=== PATIENT | male | born 1985 | race Hispanic/Latino ===

== ENCOUNTER 2018-05-18 17:41 | Emergency (ER) | payer SELFPAY ==
--- NOTE | 2018-05-18 18:20 | EDPHYS ---
Physician Documentation [facility] Name: José Miguel Varma Age: 32 yrs Sex: Male : 1985 Arrival Date: 05/18/2018 Time: 17:45 Bed 27 Private MD: ED Physician Loc Barroso HPI: 05/18 19:31 This 32 yrs old Male presents to ER via Ambulatory with complaints of Torn jr8 Bicep. 19:31 Onset: The symptoms/episode began/occurred acutely, today. Associated signs and jr8 symptoms: The patient has no apparent associated signs or symptoms. Severity of symptoms: At their worst the symptoms were moderate, in the emergency department the symptoms are unchanged. The patient has not experienced similar symptoms in the past. The patient has not recently seen a physician. Patient stated that he was doing lifts and felt pop at proximal anterior shoulder. Noticed ball at mid biceps. Pain since incident. Thinks he may have torn something . Historical: - Allergies: 17:47 No Known Allergies; hj - Home Meds: 17:47 None [Active]; hj - PMHx: 17:47 None; hj - PSHx: 17:47 R shoulder surgery; hj - Immunization history:: Adult Immunizations up to date. - Social history:: Smoking status: Patient/guardian denies using tobacco, Patient uses alcohol, only on a social basis. - Ebola Screening: : Patient negative for fever greater than or equal to 101.5 degrees Fahrenheit, and additional compatible Ebola Virus Disease symptoms Patient denies exposure to infectious person Patient denies travel to an Ebola-affected area in the 21 days before illness onset. ROS: 19:31 Eyes: Negative for injury, pain, redness, and discharge, ENT: Negative for injury, jr8 pain, and discharge, Neck: Negative for injury, pain, and swelling, Cardiovascular: Negative for chest pain, palpitations, and edema, Respiratory: Negative for shortness of breath, cough, wheezing, and pleuritic chest pain, Abdomen/GI: Negative for abdominal pain, nausea, vomiting, diarrhea, and constipation, Back: Negative for injury and pain, Skin: Negative for injury, rash, and discoloration, Neuro: Negative for headache, weakness, numbness, tingling, and seizure. 19:31 MS/extremity: Positive for pain, tenderness, of the right bicep. Exam: 19:31 Cardiovascular: Regular rate and rhythm with a normal S1 and S2. No gallops, murmurs, jr8 or rubs. Normal PMI, no JVD. No pulse deficits. Respiratory: Lungs have equal breath sounds bilaterally, clear to auscultation and percussion. No rales, rhonchi or wheezes noted. No increased work of breathing, no retractions or nasal flaring. Skin: Warm, dry with normal turgor. Normal color with no rashes, no lesions, and no evidence of cellulitis. Neuro: Awake and alert, GCS 15, oriented to person, place, time, and situation. Cranial nerves II-XII grossly intact. Motor strength 5/5 in all extremities. Sensory grossly intact. Cerebellar exam normal. Normal gait. 19:31 Musculoskeletal/extremity: Extremities: grossly normal except: noted in the right bicep: pain, tenderness, biceps on right has been displaced distally consistent with torn tendon , ROM: intact in all extremities, limited active range of motion due to pain, limited passive range of motion due to pain, Circulation is intact in all extremities. Sensation intact. Vital Signs: 17:48 BP 121 / 87; Pulse 87; Resp 18; Temp 98.8(TE); Pulse Ox 97% on R/A; Weight 97.52 kg; Height 5 ft. 10 in. (177.80 cm); Pain 10/10; 18:04 BP 131 / 82; Pulse 80; Resp 18; Pulse Ox 95% on R/A; Pain 10/10; mg2 17:48 Body Mass Index 30.85 (97.52 kg, 177.80 cm) Procedures: 19:31 Splinting: Splint applied to right arm using sling, applied by nurse. Examined by gema jackson post splint application: neurovascular intact, 2+ distal pulses palpable, brisk capillary refill noted, Patient tolerated well. MDM: 18:00 Patient medically screened. jr8 18:19 Data reviewed: vital signs, nurses notes, and as a result, I will discharge patient. jr8 Data interpreted: Pulse oximetry: on room air is 95 %. Interpretation: normal. Counseling: I had a detailed discussion with the patient and/or guardian regarding: the historical points, exam findings, and any diagnostic results supporting the discharge/admit diagnosis, the need for outpatient follow up, a orthopedic surgeon, to return to the emergency department if symptoms worsen or persist or if there are any questions or concerns that arise at home. 05/18 18:19 Order name: Laz; Complete Time: 18:30 jr8 Administered Medications: No medications were administered Disposition: 05/18/18 18:19 Discharged to Home. Impression: Injury of muscle, fascia and tendon of long head of biceps. - Condition is Stable. - Discharge Instructions: Bicipital Tendinitis. - Prescriptions for Mobic 7.5 mg Oral Tablet - take 1 tablet by ORAL route once daily take with food; 20 tablet. Ultracet 37.5- 325 mg Oral Tablet - take 1 tablet by ORAL route every 6 hours - for up to 5 days; do not exceed 8 tablets per day.; 30 tablet. - Medication Reconciliation Form, Thank You Letter, Antibiotic Education, Prescription Opioid Use form. - Follow up: Gilberto Tang MD; When: 2 - 3 days; Reason: Recheck today's complaints, Continuance of care, Re-evaluation by your physician. - Problem is new. - Symptoms have improved. Addendum: 05/22/2018 22:14 Co-signature as Attending Physician, Loc Barroso MD Available for consultation at p s1 all times. . Signatures: Nghia Motley PA PA jr8 Jamil Ojeda RN RN hj Loc Barroso MD MD ps1 Tono Faulkner RN RN mg2 Corrections: (The following items were deleted from the chart) 05/18 18:32 18:19 05/18/2018 18:19 Discharged to Home. Impression: Injury of muscle, fascia and mg2 tendon of long head of biceps. Condition is Stable. Forms are Medication Reconciliation Form, Thank You Letter, Antibiotic Education, Prescription Opioid Use. Follow up: Dr. Gilberto Tang; When: 2 - 3 days; Reason: Recheck today's complaints, Continuance of care, Re-evaluation by your physician. Problem is new. Symptoms have improved. jr8
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
== END 2018-05-18 18:32 | disposition home or self-care (01) ==
LOC: ER 17:41
DX: S46.101A Unspecified injury of muscle, fascia and tendon of long head of biceps, right arm, initial encounter (principal); X50.0XXA Overexertion from strenuous movement or load, initial encounter; Y93.B3 Activity, free weights; Y92.89 Other specified places as the place of occurrence of the external cause
CPT/HCPCS: 99283

== ENCOUNTER 2020-01-10 09:22 | Emergency (ER) | payer SELFPAY ==
[2020-01-10] MEDS ORDERED: HYDROCODONE/APAP 7.5/325 MG TAB ONE (09:49)
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
[2020-01-10] MEDS ORDERED: ONDANSETRON 4 MG (ODT) TAB ONE (11:21)
[2020-01-10] MEDS ORDERED: MORPHINE 4 MG/ML SYR ONE (11:21)
[2020-01-10 11:35] VITALS: BP 152/94; TEMP 97.8; O2SAT 98
== END 2020-01-10 11:28 | disposition home or self-care (01) ==
LOC: ER 09:22
DX: S61.442A Puncture wound with foreign body of left hand, initial encounter (principal); W34.010A Accidental discharge of airgun, initial encounter; Y93.89 Activity, other specified; Y92.009 Unspecified place in unspecified non-institutional (private) residence as the place of occurrence of the external cause
CPT/HCPCS: 96372; 99284

== ENCOUNTER 2020-08-21 10:24 | Inpatient (IN) | payer SELFPAY ==
--- NOTE | 2020-08-21 11:58 | RAD REPORT ---
EXAM DESCRIPTION: CT - Abdomen Pelvis W Contrast - 08/21/2020 11:36 am CLINICAL HISTORY: ABD PAIN COMPARISON: No comparisons TECHNIQUE: Biphasic, helical CT imaging of the abdomen and pelvis was performed following 100 ml non -ionic IV contrast. No oral contrast administered. All CT scans are performed using dose optimization technique as appropriate and may include automated exposure control or mA/KV adjustment according to patient size. FINDINGS: No suspicious findings in the lung bases. The liver, spleen, and pancreas show no suspicious findings. Gallbladder and biliary tree are also wi thout suspicious finding. Symmetric renal function is seen with no hydronephrosis or suspicious renal mass. No pyelonephritis o r acute parenchymal process. No bladder abnormalities. No adrenal abnormalities. No dilated bowel loops or bowel wall thickening. No free air, free fluid or inflammatory stranding. No mass or bulky lymphadenopathy. Patient has a small fat only periumbilical hernia and a small fat only right inguinal hernia. No active components. No suspicious bony findings. IMPRESSION: Contrast enhanced CT abdomen and pelvis showing no significant or suspicious finding. Nonacute findings detailed in the body of the report.
[2020-08-21] MEDS ORDERED: MORPHINE 4 MG/ML SYR ONE (12:00)
[2020-08-21] MEDS ORDERED: ONDANSETRON 4 MG/2 ML VIAL ONE ×2 (12:00→12:48)
[2020-08-21] MEDS ORDERED: FAMOTIDINE 20 MG/2 ML VIAL IV ONE (12:00)
--- NOTE | 2020-08-21 12:10 | RAD REPORT ---
EXAM DESCRIPTION: RAD - Chest Single View - 08/21/2020 12:01 pm CLINICAL HISTORY: Chest pain;Abdominal distention COMPARISON: None TECHNIQUE: AP portable chest image was obtained 08/21/2020 12:01 pm . FINDINGS: Lungs are clear. Heart and vasculature are normal. No measurable pleural effusion and no p neumothorax. No acute bony abnormality seen. No acute aortic findings suspected. IMPRESSION: No acute cardiopulmonary process.
[2020-08-21 12:12] LABS: Absolute Lymphocytes (CBC) 2.3 K/uL (0.7-4.9); Basophils % 1.1 % (0-1.3); Hematocrit 54.7 % (39.6-49.0); Lymphocytes % 21.9 % (15.3-44.8); MPV 8.8 fL (7.6-11.3)
[2020-08-21 12:19] LABS: Barbiturates NEGATIVE (NEGATIVE); Benzodiazepines NEGATIVE (NEGATIVE); Cocaine POSITIVE (NEGATIVE); METHAMPHETAM NEGATIVE (NEGATIVE); Methadone NEGATIVE (NEGATIVE); Opiates POSITIVE (NEGATIVE); Phencyclidine NEGATIVE (NEGATIVE); THC Cannibis NEGATIVE (NEGATIVE)
[2020-08-21 12:32] LABS: ALT/SGPT 44 U/L (12-78); AST/SGOT 41 U/L (15-37); Albumin 4.5 g/dL (3.4-5.0); Alkaline Phosphatase 62 U/L (45-117); BUN Blood Urea Nitrogen 10 mg/dL (7-18); Bicarbonate 26 mmol/L (21-32); Bilirubin Direct < 0.1 mg/dL (0-0.2); Bilirubin Total 0.5 mg/dL (0.2-1.0); Glucose Level 92 mg/dL (74-106); Lipase 502 U/L (73-393); Magnesium 2.1 mg/dL (1.8-2.4); Potassium 3.9 mmol/L (3.5-5.1); Protein, Total 8.3 g/dL (6.4-8.2); Sodium Level 138 mmol/L (136-145); Troponin (Emerg Dept Use Only) < 0.02 ng/mL (0.0-0.045)
[2020-08-21] MEDS ORDERED: HYDROMORPHONE HCL 1 MG/ML INJ ONE ×2 (12:48→16:12)
--- NOTE | 2020-08-21 13:26 | ER ---
Nurse's Notes [facility] Name: José Miguel Varma Age: 34 yrs Sex: Male : 1985 Arrival Date: 08/21/2020 Time: 10:25 Bed 20 Private MD: Diagnosis: Abdominal tenderness-intractable;Acute pancreatitis;Alcohol abuse;Cocaine abuse Presentation: 08/21 10:38 Chief complaint: Patient states: upper abd pain since last night, denies n/v/d, pain is iw non radiating, feels like something is squeezing inside 07/18, pt had 3-4 beers last night but only after the pain started , does not drink daily. Coronavirus screen: At this time, the client does not indicate any symptoms associated with coronavirus-19. Ebola Screen: Patient negative for fever greater than or equal to 101.5 degrees Fahrenheit, and additional compatible Ebola Virus Disease symptoms Patient denies exposure to infectious person. Patient denies travel to an Ebola-affected area in the 21 days before illness onset. No symptoms or risks identified at this time. Initial Sepsis Screen: Does the patient meet any 2 criteria? No. Patient's initial sepsis screen is negative. Does the patient have a suspected source of infection? No. Patient's initial sepsis screen is negative. Risk Assessment: Do you want to hurt yourself or someone else? Patient reports no desire to harm self or others. Onset of symptoms was August 21, 2020. 10:38 Method Of Arrival: Ambulatory iw 10:38 Acuity: SHAINA 2 iw Historical: - Allergies: 10:40 No Known Allergies; iw - Home Meds: 10:40 None [Active]; iw - PMHx: 10:40 None; iw - PSHx: 10:40 None; iw - Immunization history:: Adult Immunizations not up to date. - Social history:: Smoking status: Patient denies any tobacco usage or history of. - Family history:: not pertinent. Screenin:00 Abuse screen: Denies threats or abuse. Denies injuries from another. Nutritional jl7 screening: No deficits noted. Tuberculosis screening: No symptoms or risk factors identified. Fall Risk IV access (20 points). Total Higginbotham Fall Scale indicates No Risk (0-24 pts). Assessment: 11:00 General: Appears in no apparent distress. uncomfortable, Behavior is cooperative, jl7 crying. Pain: Complains of pain in epigastric area Pain currently is 10 out of 10 on a pain scale. Quality of pain is described as squeezing, gnawing, Pain began 1 day ago. Is continuous. Neuro: Level of Consciousness is awake, alert, obeys commands, Oriented to person, place, time, situation. Cardiovascular: Patient's skin is warm and dry. Respiratory: Airway is patent Respiratory effort is even, unlabored, Respiratory pattern is regular, symmetrical. GI: Abdomen is flat, non-distended, Stools are reported to be normal. Last BM was August 21, 2020. Abd is soft and non tender X 4 quads. Abdomen is tender to palpation in epigastric area. : No signs and/or symptoms were reported regarding the genitourinary system. Derm: Skin is pink, warm \T\ dry. Musculoskeletal: No signs and/or symptoms reported regarding the musculoskeletal system. 12:00 Reassessment: Patient appears in no apparent distress at this time. Patient and/or jl7 family updated on plan of care and expected duration. Pain level reassessed. Patient is alert, oriented x 3, equal unlabored respirations, skin warm/dry/pink. 12:50 Reassessment: Pain rated 6/10. jl7 14:06 Reassessment: Patient appears in no apparent distress at this time. Patient and/or jl7 family updated on plan of care and expected duration. Pain level reassessed. Patient is alert, oriented x 3, equal unlabored respirations, skin warm/dry/pink. Pt reports pain 8/10 at this time. 15:00 Reassessment: Patient appears in no apparent distress at this time. No changes from jl7 previously documented assessment. Patient and/or family updated on plan of care and expected duration. Pain level reassessed. Patient is alert, oriented x 3, equal unlabored respirations, skin warm/dry/pink. Vital Signs: 10:38 BP 156 / 108; Pulse 94; Resp 16; Temp 98.9; Pulse Ox 98% on R/A; Weight 113.4 kg; iw Height 5 ft. 10 in. (177.80 cm); Pain 10/10; 12:00 BP 150 / 107; Pulse 76; Resp 15; Pulse Ox 95% ; jl7 14:07 BP 158 / 112; Pulse 77; Resp 17; Pulse Ox 95% ; Pain 8/10; jl7 16:10 BP 154 / 119; Pulse 75; Resp 17; Pulse Ox 98% ; jl7 10:38 Body Mass Index 35.87 (113.40 kg, 177.80 cm) iw ED Course: 10:25 Patient arrived in ED. ag5 10:40 Triage completed. iw 10:41 Arm band placed on. iw 11:00 Patient has correct armband on for positive identification. Placed in gown. Bed in low jl7 position. Call light in reach. Side rails up X 1. artillery or naval gunfire observer on. Pulse ox on. NIBP on. Warm blanket given. 11:06 Florentin Ontiveros MD is Attending Physician. [facility] 11:09 Elkin Garcia RN is Primary Nurse. jl7 11:30 Initial lab(s) drawn, by nj, sent to lab. Inserted saline lock: 20 gauge in right jl7 antecubital area, using aseptic technique. ,using aseptic technique. Inserted by Larissa Radius Corner Machine Operator Blood collected. 11:36 CT Abd/Pelvis - IV Contrast Only In Process Unspecified. EDMS 12:01 XRAY Chest (1 view) In Process Unspecified. EDMS 13:24 Terrell Singletary MD is Hospitalizing Provider. [facility] 14:09 Admitting physician to see patient. jl7 16:11 No provider procedures requiring assistance completed. Patient admitted, IV remains in jl7 place. intact, No redness/swelling at site. Administered Medications: 11:50 Drug: Pepcid 20 mg Route: IVP; Site: right antecubital; jl7 14:03 Follow up: Response: No adverse reaction jl7 11:52 Drug: Zofran (Ondansetron) 4 mg Route: IVP; Site: right antecubital; jl7 12:00 Follow up: Response: No adverse reaction jl7 11:54 Drug: morphine 4 mg Route: IVP; Site: right antecubital; jl7 12:10 Follow up: Response: No adverse reaction; Pain is decreased jl7 13:25 Drug: Dilaudid 1 mg Route: IVP; Site: right antecubital; jl7 13:50 Follow up: Response: No adverse reaction; Pain is decreased jl7 13:30 Drug: Zofran (Ondansetron) 4 mg Route: IVP; Site: right antecubital; jl7 13:50 Follow up: Response: No adverse reaction jl7 14:02 Drug: GI Cocktail without - (Maalox Suspension 30 ml, Lidocaine Liquid 2 % 15 jl7 ml) Route: PO; 16:10 Follow up: Response: No adverse reaction jl7 14:43 Drug: NS 0.9% 1000 ml Route: IV; Rate: 1 bolus; Site: right antecubital; jl7 16:09 Follow up: IV Status: Infusion continued upon admission jl7 15:56 CANCELLED (Duplicate Order): Dilaudid 1 mg IVP once; RASS on ADMIN: Combtv4, Very jl7 Agttd3, Agttd2, Rstlss1, AlertClm0, Drwsy-1, Lt Sdtn-2, Mod Sdtn-3, Dp Sdtn-4, UnArsble-5 15:56 Drug: Dilaudid 1 mg Route: IVP; Site: right antecubital; jl7 16:09 Follow up: Response: No adverse reaction jl7 Outcome: 13:26 Decision to Hospitalize by Provider. roge 16:11 Admitted to Tele accompanied by S*Bio, via wheelchair, room 210, with chart, Report jl7 called to LULU Jung 16:11 Condition: stable 16:11 Discharge instructions given to patient, Instructed on the need for admit, Demonstrated understanding of instructions. 16:12 Patient left the ED. jl7 Signatures: Dispatcher [employer] Florentin Alcazar MD MD cha Williams, Irene, RN RN iw Leal, Jahala, RN RN 7 Ginny Higgins ag5 Corrections: (The following items were deleted from the chart) 10:41 10:38 Chief complaint: Patient states: upper abd pain since last night, denies n/v/d, iw pain is non radiating, feels like something is squeezing inside 07/18 iw 10:42 10:38 Chief complaint: Patient states: upper abd pain since last night, denies n/v/d, iw pain is non radiating, feels like something is squeezing inside 07/18 iw 14:03 14:02 Zofran (Ondansetron) 4 mg IVP in right antecubital jl7 jl7 16:12 16:11 Admitted to Tele accompanied by S*Bio, via wheelchair, room 206, with chart, jl7 Report called to LULU Jung jl7
--- NOTE | 2020-08-21 13:26 | EDPHYS ---
Physician Documentation [facility] Name: José Miguel Varma Age: 34 yrs Sex: Male : 1985 Arrival Date: 08/21/2020 Time: 10:25 Bed 20 Private MD: ED Physician Florentin Ontiveros HPI: 08/21 13:19 This 34 yrs old Male presents to ER via Ambulatory with complaints of roge Abdominal Pain. 13:19 The patient presents with abdominal pain in the epigastric area, in the upper abdomen. roge Onset: The symptoms/episode began/occurred 1 day(s) ago. The symptoms do not radiate. Associated signs and symptoms: none. The symptoms are described as crampy, steady. Modifying factors: The symptoms are alleviated by nothing, the symptoms are aggravated by nothing. Severity of pain: At its worst the pain was moderate in the emergency department the pain is unchanged. The patient has not experienced similar symptoms in the past. Historical: - Allergies: 10:40 No Known Allergies; iw - Home Meds: 10:40 None [Active]; iw - PMHx: 10:40 None; iw - PSHx: 10:40 None; iw - Immunization history:: Adult Immunizations not up to date. - Social history:: Smoking status: Patient denies any tobacco usage or history of. - Family history:: not pertinent. ROS: 13:19 Constitutional: Negative for fever, chills, and weight loss, Eyes: Negative for injury, roge pain, redness, and discharge, ENT: Negative for injury, pain, and discharge, Neck: Negative for injury, pain, and swelling, Cardiovascular: Negative for chest pain, palpitations, and edema, Respiratory: Negative for shortness of breath, cough, wheezing, and pleuritic chest pain, Back: Negative for injury and pain, : Negative for injury, bleeding, discharge, and swelling, MS/Extremity: Negative for injury and deformity, Skin: Negative for injury, rash, and discoloration, Neuro: Negative for headache, weakness, numbness, tingling, and seizure, Psych: Negative for depression, anxiety, suicide ideation, homicidal ideation, and hallucinations, Allergy/Immunology: Negative for hives, rash, and allergies, Endocrine: Negative for neck swelling, polydipsia, polyuria, polyphagia, and marked weight changes, Hematologic/Lymphatic: Negative for swollen nodes, abnormal bleeding, and unusual bruising. 13:19 Abdomen/GI: Positive for abdominal pain, of the epigastric area, right upper quadrant and left upper quadrant. Exam: 13:19 Constitutional: This is a well developed, well nourished patient who is awake, alert, roge and in no acute distress. Head/Face: Normocephalic, atraumatic. Eyes: Pupils equal round and reactive to light, extra-ocular motions intact. Lids and lashes normal. Conjunctiva and sclera are non-icteric and not injected. Cornea within normal limits. Periorbital areas with no swelling, redness, or edema. ENT: Nares patent. No nasal discharge, no septal abnormalities noted. Tympanic membranes are normal and external auditory canals are clear. Oropharynx with no redness, swelling, or masses, exudates, or evidence of obstruction, uvula midline. Mucous membranes moist. Neck: Trachea midline, no thyromegaly or masses palpated, and no cervical lymphadenopathy. Supple, full range of motion without nuchal rigidity, or vertebral point tenderness. No Meningismus. Chest/axilla: Normal chest wall appearance and motion. Nontender with no deformity. No lesions are appreciated. Cardiovascular: Regular rate and rhythm with a normal S1 and S2. No gallops, murmurs, or rubs. Normal PMI, no JVD. No pulse deficits. Respiratory: Lungs have equal breath sounds bilaterally, clear to auscultation and percussion. No rales, rhonchi or wheezes noted. No increased work of breathing, no retractions or nasal flaring. Back: No spinal tenderness. No costovertebral tenderness. Full range of motion. Male : Normal genitalia with no discharge or lesions. Skin: Warm, dry with normal turgor. Normal color with no rashes, no lesions, and no evidence of cellulitis. MS/ Extremity: Pulses equal, no cyanosis. Neurovascular intact. Full, normal range of motion. Neuro: Awake and alert, GCS 15, oriented to person, place, time, and situation. Cranial nerves II-XII grossly intact. Motor strength 5/5 in all extremities. Sensory grossly intact. Cerebellar exam normal. Normal gait. Psych: Awake, alert, with orientation to person, place and time. Behavior, mood, and affect are within normal limits. 13:19 Abdomen/GI: Inspection: abdomen appears normal, Bowel sounds: normal, Palpation: moderate abdominal tenderness, in the epigastric area, right upper quadrant and left upper quadrant, Liver: no appreciated palpable abnormalities, Hernia: not appreciated. Vital Signs: 10:38 BP 156 / 108; Pulse 94; Resp 16; Temp 98.9; Pulse Ox 98% on R/A; Weight 113.4 kg; iw Height 5 ft. 10 in. (177.80 cm); Pain 10/10; 12:00 BP 150 / 107; Pulse 76; Resp 15; Pulse Ox 95% ; jl7 14:07 BP 158 / 112; Pulse 77; Resp 17; Pulse Ox 95% ; Pain 8/10; jl7 16:10 BP 154 / 119; Pulse 75; Resp 17; Pulse Ox 98% ; jl7 10:38 Body Mass Index 35.87 (113.40 kg, 177.80 cm) iw MDM: 11:09 Patient medically screened. [facility] 13:21 Differential diagnosis: acute coronary syndrome, coronary artery disease, roge cholecystitis, Cholelithiasis, diverticulitis, gastritis, Irritable bowel syndrome, Mesenteric ischemia or infarction, non-specific abd pain, pancreatitis, Peptic Ulcer Disease, Pyelonephritis, urinary tract infection. Data reviewed: vital signs, nurses notes, old medical records, lab test result(s), EKG, radiologic studies. Data interpreted: shelter monitor: rate is 94 beats/min, rhythm is regular, Pulse oximetry: on room air is 98 %. Test interpretation: by ED physician or midlevel provider: ECG, plain radiologic studies. Counseling: I had a detailed discussion with the patient and/or guardian regarding: the historical points, exam findings, and any diagnostic results supporting the discharge/admit diagnosis, the presence of at least one elevated blood pressure reading (>120/80) during this emergency department visit, lab results, radiology results, the need for further work-up and treatment in the hospital. 08/21 11:09 Order name: Basic Metabolic Panel; Complete Time: 13:05 roge 08/21 11:09 Order name: CBC with Diff; Complete Time: 13:05 roge 08/21 11:09 Order name: LFT's; Complete Time: 13:05 roge 08/21 11:09 Order name: Magnesium; Complete Time: 13:05 roge 08/21 11:09 Order name: Troponin (emerg Dept Use Only); Complete Time: 13:05 [facility] 08/21 11:09 Order name: Lipase; Complete Time: 13:05 [facility] 08/21 11:09 Order name: XRAY Chest (1 view); Complete Time: 13:05 [facility] 08/21 11:09 Order name: UDS; Complete Time: 13:05 [facility] 08/21 11:09 Order name: CT Abd/Pelvis - IV Contrast Only; Complete Time: 13:05 [facility] 08/21 12:30 Order name: Urine Dipstick--Ancillary (enter results); Complete Time: 13:57 08/21 13:57 Order name: CREATININE WHOLE BLOOD EDMS 08/21 11:09 Order name: EKG; Complete Time: 11:09 [facility] 08/21 11:09 Order name: Cardiac monitoring; Complete Time: 12:04 [facility] 08/21 11:09 Order name: EKG - Nurse/Tech; Complete Time: 12:04 [facility] 08/21 11:09 Order name: IV Saline Lock; Complete Time: 12:04 [facility] 08/21 11:09 Order name: Labs collected and sent; Complete Time: 12:04 [facility] 08/21 11:09 Order name: O2 Per Protocol; Complete Time: 12:04 [facility] 08/21 11:09 Order name: O2 Sat Monitoring; Complete Time: 12:04 [facility] 08/21 11:09 Order name: Urine Dipstick-Ancillary (obtain specimen); Complete Time: 11:44 [facility] Administered Medications: 11:50 Drug: Pepcid 20 mg Route: IVP; Site: right antecubital; jl7 14:03 Follow up: Response: No adverse reaction jl7 11:52 Drug: Zofran (Ondansetron) 4 mg Route: IVP; Site: right antecubital; jl7 12:00 Follow up: Response: No adverse reaction jl7 11:54 Drug: morphine 4 mg Route: IVP; Site: right antecubital; jl7 12:10 Follow up: Response: No adverse reaction; Pain is decreased jl7 13:25 Drug: Dilaudid 1 mg Route: IVP; Site: right antecubital; jl7 13:50 Follow up: Response: No adverse reaction; Pain is decreased jl7 13:30 Drug: Zofran (Ondansetron) 4 mg Route: IVP; Site: right antecubital; 7 13:50 Follow up: Response: No adverse reaction 7 14:02 Drug: GI Cocktail without - (Maalox Suspension 30 ml, Lidocaine Liquid 2 % 15 jl7 ml) Route: PO; 16:10 Follow up: Response: No adverse reaction 7 14:43 Drug: NS 0.9% 1000 ml Route: IV; Rate: 1 bolus; Site: right antecubital; 7 16:09 Follow up: IV Status: Infusion continued upon admission [facility] 15:56 CANCELLED (Duplicate Order): Dilaudid 1 mg IVP once; RASS on ADMIN: Combtv4, Very jl7 Agttd3, Agttd2, Rstlss1, AlertClm0, Drwsy-1, Lt Sdtn-2, Mod Sdtn-3, Dp Sdtn-4, UnArsble-5 15:56 Drug: Dilaudid 1 mg Route: IVP; Site: right antecubital; 7 16:09 Follow up: Response: No adverse reaction [facility] Disposition: 08/21/20 13:26 Hospitalization ordered by Terrell Singletary for Observation. Preliminary diagnosis are Abdominal tenderness - intractable, Acute pancreatitis, Alcohol abuse, Cocaine abuse. - Bed requested for Telemetry/MedSurg (observation). - Status is Observation. [facility] - Condition is Stable. - Problem is new. - Symptoms have improved. Signatures: Dispatcher [employer] [facility] Florentin Ontiveros MD MD cha Williams, Irene, RN RN iw Leal, Jahala, RN RN jl7 Botello, Elizabeth eb Corrections: (The following items were deleted from the chart) 15:32 13:26 Hospitalization Ordered by Terrell Singletary MD for Observation. Preliminary eb diagnosis is Abdominal tenderness - intractable; Acute pancreatitis; Alcohol abuse; Cocaine abuse. Bed requested for Telemetry/MedSurg (observation). Status is Observation. Condition is Stable. Problem is new. Symptoms have improved. [facility] 15:56 15:55 Dilaudid 1 mg IVP once; RASS on ADMIN: Combtv4, Very Agttd3, Agttd2, Rstlss1, jl7 AlertClm0, Drwsy-1, Lt Sdtn-2, Mod Sdtn-3, Dp Sdtn-4, UnArsble-5 ordered. jl7 16:12 15:32 08/21/2020 13:26 Hospitalization Ordered by Terrell Singletary MD for Observation. jl7 Preliminary diagnosis is Abdominal tenderness - intractable; Acute pancreatitis; Alcohol abuse; Cocaine abuse. Bed requested for Telemetry/MedSurg (observation). Status is Observation. Condition is Stable. Problem is new. Symptoms have improved. eb
[2020-08-21 13:31] LABS: Urine Blood NEGATIVE (NEG); Urine Glucose NEGATIVE (NEG); Urine Protein 1+ (NEG); Urine Specific Gravity 1.025 (1.005-1.030)
[2020-08-21] MEDS ORDERED: MAGNES/ALUMIN/SIMET 30ML UCUP ONE (14:11)
[2020-08-21] MEDS ORDERED: LIDOCAINE VISCOUS 2% SOLN 15 ML UDC ONE (14:11)
[2020-08-21] MEDS ORDERED: NA CHLORIDE 0.9% 1,000 ML ONE (14:25)
--- NOTE | 2020-08-21 14:44 | P.HP ---
Certification for Inpatient Patient admitted to: Inpatient With expected LOS: >2 Midnights Practitioner: I am a practitioner with admitting privileges, knowledge of patient current condition, hospital course, and medical plan of care. Services: Services provided to patient in accordance with Admission requirements found in Title 42 Section 412.3 of the Code of Federal Regulations Patient History Date of Service: 08/21/20 Reason for admission: Acute pancreatitis History of Present Illness: 34-year-old male who presents to ED due to sudden onset of severe cramping pain in his epigastric region that began at midnight this morning. He reports it is only continued to worsen and is not constant. It is worse if he takes a deep breath, it improves with sitting in a slight reclined position. He states he has otherwise been in his usual state of health, does report he has been drinking approximately 16 beers every weekend for the past several weeks/months. He reports anorexia, Denies nausea/vomiting, no diarrhea, no fever/chills, normal bowel movement this morning, no blood in stool. Workup notable for lipase of 502, elevated creatinine, no leukocytosis, urine toxicology positive for opiates and cocaine. Patient reports he took hydrocodone in this morning with no improvement. Last used cocaine approximately [address] abdomen/pelvis with no significant or suspicious findings. Allergies No Known Allergies Allergy (Unverified 05/18/18 18:36) Home Medications: NK [No Home Meds] 08/21/20 - Past Medical/Surgical History Past Medical History: Patient denies medical history -: Shoulder surgery -: Right finger surgery - Family History Father -: Diabetes - Social History Smoking Status: Never smoker Alcohol use: Yes CD- Drugs: Yes Place of Residence: Home Review of Systems 10-point ROS is otherwise unremarkable Physical Examination - Physical Exam General: Alert, Moderate distress HEENT: Sclerae nonicteric Respiratory: Clear to auscultation bilaterally, Normal air movement Cardiovascular: No edema, Regular rate/rhythm Gastrointestinal: Tenderness (Severe in the epigastric region, no rebound, no rigidity) Musculoskeletal: No swelling, No tenderness Integumentary: No rashes Neurological: Normal speech, Normal affect - Studies Laboratory Data (last 24 hrs) 08/21/20 11:35: WBC 10.4, Hgb 19.2 H, Hct 54.7 H, Plt Count 329 08/21/20 11:35: Sodium 138, Potassium 3.9, BUN 10, Creatinine 1.33 H, Glucose 92, Magnesium 2.1, Total Bilirubin 0.5, AST 41 H, ALT 44, Alkaline Phosphatase 62, Lipase 502 H Assessment and Plan - Advance Directives Does patient have a Living Will: No Does patient have a Durable POA for Healthcare: No Physician Review Additional Text: Acute pancreatitis Acute kidney injury, likely prerenal -likely alcoholic pancreatitis given his recent history of binge drinking -NPO, IV fluids, pain control with Dilaudid -advance diet once patient's appetite returns -serial abdominal exams -patient does not appear septic at this time Dispo: anticipate hospitalization > 2 days, dc home
[2020-08-21] MEDS ORDERED: ONDANSETRON 4 MG/2 ML VIAL IV PRN (16:19)
[2020-08-21 16:31] VITALS: BMI 34.0
[2020-08-21] MEDS: ENOXAPARIN 40 MG/0.4 ML SQ SCH (17:00)
[2020-08-21] MEDS: NA CHLORIDE 0.9% 1,000 ML IV SCH ×2 (17:01→22:51)
[2020-08-21] MEDS ORDERED: INFLUENZA VACCINE (for 3y+) 0.5 ML DOSE IMVAC ONE (18:00)
[2020-08-21] MEDS: HYDROMORPHONE HCL 1 MG/ML INJ IV PRN ×2 (18:50→21:43)
[2020-08-22] MEDS: HYDROMORPHONE HCL 1 MG/ML INJ IV PRN ×11 (00:33→23:15)
[2020-08-22] MEDS: NA CHLORIDE 0.9% 1,000 ML IV SCH ×5 (04:55→20:01)
[2020-08-22 06:29] LABS: Absolute Lymphocytes (CBC) 2.1 K/uL (0.7-4.9); Basophils % 0.6 % (0-1.3); Hematocrit 54.5 % (39.6-49.0); Lymphocytes % 16.1 % (15.3-44.8); MPV 8.6 fL (7.6-11.3); RBC Red Blood Cell Count 6.07 M/uL (4.33-5.43)
[2020-08-22 06:58] LABS: Albumin 4.2 g/dL (3.4-5.0); Bilirubin Total 0.9 mg/dL (0.2-1.0); Magnesium 2.3 mg/dL (1.8-2.4); Potassium 3.9 mmol/L (3.5-5.1); Protein, Total 8.1 g/dL (6.4-8.2)
[2020-08-22] MEDS: ENOXAPARIN 40 MG/0.4 ML SQ SCH (08:05)
--- NOTE | 2020-08-22 08:31 | P.PN ---
Subjective Date of Service: 08/22/20 Chief Complaint: Acute pancreatitis Subjective: Improving (slightly, denies nausea/vomiting, reports he is hungry, feels her abdominal pain is slightly improved but states pain medication is not lasting long enough) Review of Systems 10-point ROS is otherwise unremarkable Physical Examination - Vital Signs Temperature: 97.6 F Blood Pressure: 157/109 Pulse: 79 Respirations: 19 Pulse Ox (%): 96 - Physical Exam General: Alert, Mild distress HEENT: Sclerae nonicteric Respiratory: Clear to auscultation bilaterally, Normal air movement Cardiovascular: No edema, Regular rate/rhythm Gastrointestinal: Hypoactive, Soft and benign, No rebound, Tenderness (moderate in epigastrium), Guarding (mild) Musculoskeletal: No tenderness Integumentary: No rashes Neurological: Normal speech, Normal affect - Studies Laboratory Data (last 24 hrs) 08/21/20 11:35: WBC 10.4, Hgb 19.2 H, Hct 54.7 H, Plt Count 329 08/21/20 11:35: Sodium 138, Potassium 3.9, BUN 10, Creatinine 1.33 H, Glucose 92, Magnesium 2.1, Total Bilirubin 0.5, AST 41 H, ALT 44, Alkaline Phosphatase 62, Lipase 502 H Assessment & Plan Physician Review Additional Text: Acute alcoholic pancreatitis Acute kidney injury Acute alcoholic pancreatitis -likely alcoholic pancreatitis given his recent history of binge drinking -will make dilaudid more frequent, pt reports overall feeling a little better and hungry now -ok for ice chips / minimal clear liquid diet for now -leukocytosis increased slightly this morning, remains afebrile -lipase decreasing Acute kidney injury -renal function worse this morning -increase IVF to 200 ml/hr -will obtain urine studies, consult nephrology Dispo: anticipate dc home in ~48hrs Time Spent Managing Pts Care (In Minutes): 35
[2020-08-22] MEDS ORDERED: KCL 20 MEQ/100 mL IVPB 20 MEQ/100 ML BAG IV SCH (09:00)
[2020-08-22 09:40] LABS: Platelet Estimate ADEQ
[2020-08-22 09:41] LABS: Blood Morphology Comment NOT SEEN (NOT SEEN)
[2020-08-22 13:30] LABS: Urine Appearance CLEAR; Urine Bilirubin NEGATIVE (NEG); Urine Blood NEGATIVE (NEG); Urine Color YELLOW; Urine Glucose NEGATIVE (NEG); Urine Protein NEGATIVE (NEG); Urine Specific Gravity 1.015 (1.005-1.030); Urine Urobilinogen 0.2 mg/dL (0.2-1.0); Urine pH 7.5 (5.0-7.0)
[2020-08-22 13:41] LABS: Urine Bacteria <20 /HPF (NONE SEEN); Urine Culture Reflex Order NOT NEEDED; Urine RBC NONE SEEN /HPF (NONE SEEN)
[2020-08-23] MEDS: NA CHLORIDE 0.9% 1,000 ML IV SCH ×6 (01:03→15:25)
[2020-08-23] MEDS: HYDROMORPHONE HCL 1 MG/ML INJ IV PRN ×2 (01:15→03:15)
[2020-08-23 06:10] LABS: Absolute Lymphocytes (CBC) 1.9 K/uL (0.7-4.9); Basophils % 0.5 % (0-1.3); Lymphocytes % 14.2 % (15.3-44.8); MPV 8.7 fL (7.6-11.3); RBC Red Blood Cell Count 5.49 M/uL (4.33-5.43)
[2020-08-23 06:24] LABS: Albumin 3.7 g/dL (3.4-5.0); Bilirubin Total 0.9 mg/dL (0.2-1.0); Phosphorus 2.4 mg/dL (2.5-4.9); Potassium 3.6 mmol/L (3.5-5.1); Protein, Total 7.6 g/dL (6.4-8.2)
[2020-08-23] MEDS ORDERED: HYDROMORPHONE HCL 1 MG/ML INJ IV PRN (07:02)
--- NOTE | 2020-08-23 07:47 | EKG ---
Test Date: 2020-08-21 Test Time: 10:58:50 [employer]: [facility] MEASUREMENT RESULTS: Intervals: Rate: 79 UT: 150 QRSD: 96 QT: 356 QTc: 408 [place]: P: 26 UT: 150 QRS: 22 T: 45 INTERPRETIVE STATEMENTS: Normal sinus rhythm Normal ECG No previous ECG available for comparison Electronically Signed On 08-23-20 07:41:25 NUMERICAL CONTROL ROUTER OPERATOR by Connor Reddy
[2020-08-23] MEDS ORDERED: POTASSIUM PHOS IN 0.9 % NACL 15 MMOL/250 ML BAG IV ONE (09:00)
[2020-08-23] MEDS: ENOXAPARIN 40 MG/0.4 ML SQ SCH (09:22)
[2020-08-23] MEDS: HYDROCODONE/APAP 5/325 MG TAB PO PRN ×3 (09:22→21:17)
--- NOTE | 2020-08-23 09:49 | P.PN ---
Subjective Date of Service: 08/23/20 Chief Complaint: Acute pancreatitis Subjective: Improving (Slightly improving, pain is less severe but still requiring frequent pain medication. Tolerated ice chips and clear liquid diet with no worsening of pain.) Review of Systems 10-point ROS is otherwise unremarkable Physical Examination - Vital Signs Temperature: 98 F Blood Pressure: 137/85 Pulse: 75 Respirations: 18 Pulse Ox (%): 97 - Physical Exam General: Alert, In no apparent distress, Mild distress Cardiovascular: No edema, Regular rate/rhythm Gastrointestinal: Soft and benign, Non-distended, Tenderness (Mild epigastrium) Musculoskeletal: No tenderness Integumentary: No rashes Neurological: Normal speech, Normal affect Assessment & Plan Physician Review Additional Text: Acute alcoholic pancreatitis Acute kidney injury Acute alcoholic pancreatitis -likely alcoholic pancreatitis given his recent history of binge drinking -improving, getting appetite back, tolerated clear liquid diet, advanced to full liquids, can likely advance to soft diet as tolerated -transition to p.o. pain medicine, IV Dilaudid for severe breakthrough -remains afebrile, leukocytosis stable -lipase decreasing Acute kidney injury -nephrology consulted -renal function improving, IVF at 200 mL/hr, will decrease after tolerating full liquid diet Dispo: Likely discharge home tomorrow if able to advance diet and pain improves Time Spent Managing Pts Care (In Minutes): 35
[2020-08-23] MEDS: TRAMADOL HCL 50 MG TAB PO PRN (20:03)
[2020-08-23] MEDS: MELATONIN 5 MG TABLET PO PRN (21:18)
[2020-08-24] MEDS: HYDROMORPHONE HCL 1 MG/ML INJ IV PRN ×4 (01:22→15:44)
[2020-08-24] MEDS: HYDROCODONE/APAP 5/325 MG TAB PO PRN ×2 (03:22→19:37)
[2020-08-24] MEDS: NA CHLORIDE 0.9% 1,000 ML IV SCH ×2 (03:24→15:47)
[2020-08-24 05:49] LABS: Absolute Lymphocytes (CBC) 2.3 K/uL (0.7-4.9); Basophils % 0.7 % (0-1.3); Lymphocytes % 22.5 % (15.3-44.8); MPV 8.8 fL (7.6-11.3); RBC Red Blood Cell Count 5.63 M/uL (4.33-5.43)
[2020-08-24 05:51] LABS: Magnesium 2.3 mg/dL (1.8-2.4); Phosphorus 2.8 mg/dL (2.5-4.9); Potassium 3.7 mmol/L (3.5-5.1)
[2020-08-24] MEDS: ENOXAPARIN 40 MG/0.4 ML SQ SCH (08:19)
[2020-08-24] MEDS ORDERED: POTASSIUM CL SA 10 MEQ TAB PO ONE (09:00)
--- NOTE | 2020-08-24 11:00 | P.PN ---
Date of Service: 08/24/20 Vital Signs Temp Pulse Resp BP Pulse Ox 97.6 F 64 17 128/77 97 08/24/20 08:00 08/24/20 08:00 08/24/20 08:04 08/24/20 08:00 08/24/20 08:04 Medications Hydrocodone Bitart/Acetaminophen ([place] 5/325) 1 tab PO Q6H PRN PRN Reason: Pain scale 5-7 (Moderate) Stop: 09/22/20 07:02 Last Admin: 08/24/20 03:22 Dose: 1 tab Documented by: Enoxaparin Sodium (Lovenox 40 Mg Inj) 40 mg SQ DAILY [facility] Stop: 09/20/20 17:01 Last Admin: 08/24/20 08:19 Dose: 40 mg Documented by: Hydromorphone HCl (Dilaudid) 1 mg IV Q4H PRN PRN Reason: Pain scale 8-10 (Severe) Stop: 09/22/20 19:30 Last Admin: 08/24/20 07:34 Dose: 1 mg Documented by: Sodium Chloride (Ns 1000 Ml Ivbag) 1,000 mls @ 75 mls/hr IV .[id number] [facility] Stop: 09/22/20 15:26 Last Admin: 08/24/20 03:24 Dose: 1,000 mls Documented by: Melatonin (Melatonin) 10 mg PO BEDTIME PRN PRN PRN Reason: INSOMNIA Stop: 09/22/20 19:30 Last Admin: 08/23/20 21:18 Dose: 10 mg Documented by: Ondansetron HCl (Zofran) 4 mg IV Q6HP PRN PRN Reason: NAUSEA / VOMITING Stop: 09/20/20 16:20 Sodium Chloride (Normal Saline Flush) 10 ml IV BID [facility] Stop: 09/20/20 21:01 Last Admin: 08/24/20 08:20 Dose: Not Given Documented by: Tramadol HCl (Ultram) 50 mg PO TID PRN PRN Reason: Pain scale 5-7 (Moderate) Stop: 09/22/20 19:31 Last Admin: 08/23/20 20:03 Dose: 50 mg Documented by: Assessment/ Plan: Nephrology CPS stable without CP or SOB. No acute events overnight. Feeling better today but with persistent epigastric pain. Vitals, medications, blood work and imaging reviewed in the chart. NAD. MMM. Neck supple. CTA. RRR. Soft Abd. No C/C/E. No rash. AAO. Normal Speech. A/ CAL likely due to hypovolemia Hypokalemia Alcohol induced pancreatitis Abdominal pain Polysubstance abuse P/ Continue current POC and Medications. Continue IVF. Replete lytes prn. Pain control as ordered. AM labs. Daily weight. No NSAIDs. EXAM DESCRIPTION: RAD - Chest Single View - 08/21/2020 12:01 pm CLINICAL HISTORY: Chest pain;Abdominal distention COMPARISON: None TECHNIQUE: AP portable chest image was obtained 08/21/2020 12:01 pm . FINDINGS: Lungs are clear. Heart and vasculature are normal. No measurable pleural effusion and no pneumothorax. No acute bony abnormality seen. No acute aortic findings suspected. IMPRESSION: No acute cardiopulmonary process.
--- NOTE | 2020-08-24 16:05 | P.PN ---
Subjective Date of Service: 08/24/20 Chief Complaint: Acute pancreatitis Subjective: Worsening (Worsened epigastric pain overnight and this morning - reports it worsened after soft diet last night Slight nausea. Had bowel movement overnight) Review of Systems 10-point ROS is otherwise unremarkable Physical Examination - Vital Signs Temperature: 97.0 F Blood Pressure: 149/94 Pulse: 75 Respirations: 16 Pulse Ox (%): 97 - Physical Exam General: Alert, Mild distress HEENT: Sclerae nonicteric Respiratory: Normal air movement Cardiovascular: No edema, Regular rate/rhythm Gastrointestinal: Soft and benign, Tenderness (Moderate epigastric) Integumentary: No tenderness/swelling Neurological: Normal speech, Normal affect Assessment & Plan Physician Review Additional Text: Acute alcoholic pancreatitis Acute kidney injury Acute alcoholic pancreatitis -likely alcoholic pancreatitis given his recent history of binge drinking -had soft diet for dinner yesterday, and then had worsening pain. Stepped down to full liquid diet today - pain slightly better but still persisting after lunch -continue with p.o. pain medicine, discontinue Dilaudid -remains afebrile, leukocytosis resolved -lipase decreased Acute kidney injury -nephrology consulted -renal function improving, received IVF at 200 mL/hr, decreased to 75 mL/hr last night since patient was tolerating clear liquids Dispo: discharge home tomorrow if tolerates full liquid diet , and pain improves. Had long discussion , discussed abstaining from alcohol in the future Time Spent Managing Pts Care (In Minutes): 35
[2020-08-24] MEDS: MELATONIN 5 MG TABLET PO PRN (21:06)
[2020-08-25 01:00] VITALS: TEMP 97
[2020-08-25] MEDS: TRAMADOL HCL 50 MG TAB PO PRN (01:23)
[2020-08-25] MEDS: HYDROCODONE/APAP 5/325 MG TAB PO PRN (02:24)
[2020-08-25 04:45] LABS: Basophils % 0.8 % (0-1.3); Hematocrit 51.2 % (39.6-49.0); Lymphocytes % 19.9 % (15.3-44.8); MPV 8.7 fL (7.6-11.3); RBC Red Blood Cell Count 5.71 M/uL (4.33-5.43)
[2020-08-25 05:01] LABS: Albumin 3.6 g/dL (3.4-5.0); Bilirubin Total 0.6 mg/dL (0.2-1.0); Potassium 3.6 mmol/L (3.5-5.1); Protein, Total 7.8 g/dL (6.4-8.2)
[2020-08-25] MEDS: NA CHLORIDE 0.9% 1,000 ML IV SCH (05:14)
[2020-08-25] MEDS: ENOXAPARIN 40 MG/0.4 ML SQ SCH (08:10)
[2020-08-25 08:33] VITALS: BP 143/82
[2020-08-25 08:49] VITALS: O2SAT 94
[2020-08-25] MEDS ORDERED: POTASSIUM CL SA 10 MEQ TAB PO ONE (09:00)
--- NOTE | 2020-08-25 09:02 | P.DS ---
Admission Date: 08/21/20 Discharge Date: 08/25/20 Disposition: ROUTINE DISCHARGE Discharge Condition: FAIR Reason for Admission: Acute pancreatitis Consultations: None Procedures: None Brief History of Present Illness: 34 year old gentleman presented to the emergency room with complaint of abdominal. Workup in the ED revealed elevated lipase suggestive of acute pancreatitis. CT abdomen and pelvis was unremarkable. His urine toxicology screen was positive for opiates and cocaine. Patient was hospitalized for further management of acute pancreatitis. Hospital Course: Patient also had evidence of acute renal failure. He was treated supportively with IV fluids. The acute renal failure resolved with treatment. Lipase level trended down to normal. Patient's symptoms gradually improved with treatment. He tolerated liquid diet and diet advancement. Today patient has no complain. His symptoms have resolved, patient is deemed stable for discharge. Vital Signs/Physical Exam: Temp Pulse Resp BP Pulse Ox 97.0 F 58 16 143/82 H 96 08/25/20 08:00 08/25/20 08:00 08/25/20 08:00 08/25/20 08:00 08/25/20 08:00 General: Alert, In no apparent distress HEENT: Mucous membr. moist/pink Respiratory: Clear to auscultation bilaterally, Normal air movement Cardiovascular: No edema, Regular rate/rhythm, Normal S1 S2 Capillary refill: <2 Seconds Gastrointestinal: Normal bowel sounds, Soft and benign, No tenderness Musculoskeletal: No swelling, No erythema Integumentary: No rashes Neurological: Other (Nonfocal) Laboratory Data at Discharge: WBC 9.9 K/uL (4.3-10.9) 08/25/20 04:12 Hgb 18.0 g/dL (13.6-17.9) H 08/25/20 04:12 Hct 51.2 % (39.6-49.0) H 08/25/20 04:12 Plt Count 307 K/uL (152-406) 08/25/20 04:12 Sodium 137 mmol/L (136-145) 08/25/20 02:41 Potassium 3.6 mmol/L (3.5-5.1) 08/25/20 02:41 BUN 8 mg/dL (7-18) 08/25/20 02:41 Creatinine 1.16 mg/dL (0.55-1.3) 08/25/20 02:41 Glucose 84 mg/dL (74-106) 08/25/20 02:41 Phosphorus 2.8 mg/dL (2.5-4.9) 08/24/20 05:05 Magnesium 2.3 mg/dL (1.8-2.4) 08/24/20 05:05 Total Bilirubin 0.6 mg/dL (0.2-1.0) 08/25/20 02:41 AST 22 U/L (15-37) 08/25/20 02:41 ALT 26 U/L (12-78) 08/25/20 02:41 Alkaline Phosphatase 62 U/L (45-117) 08/25/20 02:41 Lipase 109 U/L (73-393) 08/23/20 05:30 Home Medications: Melatonin 10 mg PO BEDTIME PRN PRN #30 tablet 08/25/20 New Medications: Melatonin 10 mg PO BEDTIME PRN PRN #30 tablet PRN Reason: Insomnia Diet: Regular Activity: Ad odilon Followup: Unknown,U [Primary Care Provider] - Time spent managing pt's care (in minutes): 36
== END 2020-08-25 10:01 | disposition home or self-care (01) | DRG 439 ==
LOC: ER 10:24 → ERHOLD 14:40 → 2ND 15:56
PROVIDERS: ADMIT Hospitalist; ATTEND Internal Medicine
DX: K85.20 Alcohol induced acute pancreatitis without necrosis or infection (principal); N17.9 Acute kidney failure, unspecified; F19.10 Other psychoactive substance abuse, uncomplicated; E86.1 Hypovolemia; Z20.828 Contact with and (suspected) exposure to other viral communicable diseases
CPT/HCPCS: 36415; 71045; 74177; 80048; 80053; 80076; 80307; 81001; 81003; 82565; 82570; 83690; 83735; 84100; 84300; 84484; 85025; 93005; 94760; 96361; 96374; 96375; 99285; J1170; J1650; J2405; J3480; J7030; Q9967; U0002

== ENCOUNTER 2020-12-22 11:22 | Emergency (ER) | payer SELFPAY ==
[2020-12-22] MEDS ORDERED: BENZONATATE 100 MG CAP PO ONE (14:53)
[2020-12-22] MEDS ORDERED: BUPIVACAINE 0.5% PF 10 ML VIAL ONE (14:53)
[2020-12-22] MEDS ORDERED: LIDOCAINE 1% MPF 30 ML VIAL ONE (14:53)
[2020-12-22 15:34] LABS: SARS-COV-2 RT PCR NEGATIVE (NEGATIVE)
--- NOTE | 2020-12-22 15:55 | RAD REPORT ---
EXAM DESCRIPTION: RAD - Chest Single View - 12/22/2020 3:08 pm CLINICAL HISTORY: COUGH Chest pain. COMPARISON: Chest Single View dated 08/21/2020 FINDINGS: Portable technique limits examination quality. The lungs are grossly clear. The heart is normal in size. No displaced fractures. IMPRESSION: No acute intrathoracic process suspected.
--- NOTE | 2020-12-22 16:04 | ER ---
Nurse's Notes [facility] Name: José Miguel Varma Age: 35 yrs Sex: Male : 1985 Arrival Date: 12/22/2020 Time: 11:23 Bed 16 Private MD: Diagnosis: Ingrowing nail-left great toe;Acute bronchitis Presentation: 12/22 11:54 Chief complaint: Patient states: c/o cough, sore throat, headache, "my lungs hurt" sv since Monday, "I have an ingrown toenail (left great toe) it's turning black.". Coronavirus screen: Client denies travel out of the [place] in the last 14 days. Client presents with at least one sign or symptom that may indicate coronavirus-19. Standard/surgical mask placed on the client. Provider contacted for isolation considerations. Ebola Screen: No symptoms or risks identified at this time. Risk Assessment: Do you want to hurt yourself or someone else? Patient reports no desire to harm self or others. Onset of symptoms was December 2020. 11:54 Method Of Arrival: Ambulatory sv 11:54 Acuity: SHAINA 3 sv 11:56 Initial Sepsis Screen: Does the patient meet any 2 criteria? HR > 90 bpm. No. Patient's sv initial sepsis screen is negative. Does the patient have a suspected source of infection? No. Patient's initial sepsis screen is negative. Triage Assessment: 11:58 General: Appears in no apparent distress. comfortable, Behavior is calm, cooperative, sv appropriate for age. Neuro: Level of Consciousness is awake, alert, obeys commands, Oriented to person, place, time, situation, Gait is steady. Respiratory: Respiratory effort is even, unlabored. Historical: - Allergies: 11:54 No Known Allergies; sv - Immunization history:: Adult Immunizations up to date, Client reports having NOT received the Covid vaccine. Flu vaccine is not up to date. - Social history:: Smoking status: Patient denies any tobacco usage or history of. Screenin:47 Abuse screen: Denies threats or abuse. Denies injuries from another. Nutritional zb screening: No deficits noted. Tuberculosis screening: No symptoms or risk factors identified. Fall Risk None identified. Assessment: 14:43 General: Appears in no apparent distress. uncomfortable, Behavior is calm, cooperative. zb Pain: Complains of pain in Right first toenail Pain does not radiate. Pain currently is 8 out of 10 on a pain scale. Quality of pain is described as aching, tender. Neuro: Level of Consciousness is awake, alert, obeys commands, Oriented to person, place, time, situation. Cardiovascular: Capillary refill < 3 seconds Patient's skin is warm and dry. Respiratory: Reports cough that is non-productive, hacking, persistent. GI: No signs and/or symptoms were reported involving the gastrointestinal system. : No signs and/or symptoms were reported regarding the genitourinary system. EENT: No signs and/or symptoms were reported regarding the EENT system. Derm: Skin is intact, is healthy with good turgor, Skin is dry, Skin is normal. Derm: Derm: redness right greater toe. Musculoskeletal: No signs and/or symptoms reported regarding the musculoskeletal system. Musculoskeletal: Swelling present in Right first toenail. 15:00 Reassessment: Patient appears in no apparent distress at this time. Patient and/or zb family updated on plan of care and expected duration. Pain level reassessed. Patient is alert, oriented x 3, equal unlabored respirations, skin warm/dry/pink. ecp at bedside lac tray set up. 16:00 Reassessment: Patient appears in no apparent distress at this time. Patient and/or zb family updated on plan of care and expected duration. Pain level reassessed. Patient is alert, oriented x 3, equal unlabored respirations, skin warm/dry/pink. 17:00 Reassessment: Patient appears in no apparent distress at this time. Patient and/or zb family updated on plan of care and expected duration. Pain level reassessed. Patient is alert, oriented x 3, equal unlabored respirations, skin warm/dry/pink. gait steady. d/c information given. left at odilon. Vital Signs: 11:56 BP 132 / 95; Pulse 99; Resp 20; Temp 99.2(O); Pulse Ox 98% on R/A; Weight 113.4 kg; sv Height 5 ft. 10 in. (177.80 cm); 15:33 BP 133 / 83; Pulse 74; Resp 16; Pulse Ox 98% on R/A; zb 16:30 BP 132 / 84; Pulse 80; Resp 16; Pulse Ox 100% on R/A; zb 11:56 Body Mass Index 35.87 (113.40 kg, 177.80 cm) ED Course: 11:23 Patient arrived in ED. ds1 11:54 Arm band placed on. sv 11:55 Triage completed. sv 12:05 Morenita Nevarez FNP-C [facility]. kb 12:05 Jamel Plata MD is Attending Physician. kb 14:09 Florentin Bush PA is PHCP. cp 14:10 Jamel Plata MD is Attending Physician. cp 14:32 Chloe Meléndez RN is Primary Nurse. zb 14:41 Strep Sent. zb 14:47 Patient has correct armband on for positive identification. Door closed. Noise zb minimized. Warm blanket given. Pillow given. 15:08 XRAY Chest (1 view) In Process Unspecified. EDMS 17:00 No provider procedures requiring assistance completed. Patient did not have IV access zb during this emergency room visit. Administered Medications: 14:43 Drug: Tessalon Perle (benzonatate) 200 mg Route: PO; zb 15:15 Follow up: Response: No adverse reaction; Marked relief of symptoms zb 15:15 Drug: Lidocaine (1 %) 10 ml {Note: Administered by ECP .} Volume: 20 ml; Route: zb Infiltration; 15:15 Drug: Marcaine (bupivacaine) (0.5 %) 10 ml {Note: adminstered by ECP .} Volume: 10 ml; zb Route: Infiltration; Outcome: 16:04 Discharge ordered by MD. cp 17:00 Discharged to home ambulatory. zb 17:00 Condition: stable 17:00 Discharge instructions given to patient, Instructed on discharge instructions, follow up and referral plans. Demonstrated understanding of instructions, follow-up care, medications, Prescriptions given X 3. 17:02 Patient left the ED. zb Signatures: Dispatcher [employer] EDLA Morenita Nevarez FNP-C FNP-Ckb Verde, Stephanie, RN RN Nicole Batista ds1 Florentin Bush PA PA cp Brown, Zipporah, RN RN zb Corrections: (The following items were deleted from the chart) 11:59 11:56 Pulse 99bpm; Resp 20bpm; Pulse Ox 98% RA; Temp 99.2F Oral; 113.4 kg; Height 5 ft. sv 10 in.; BMI: 35.8; sv 14:55 14:41 CORONAVIRUS+MR.LAB.BRZ drawn and sent. zb EDMS 14:55 14:41 Influenza Screen (A \\T\\ B)+BA.LAB.BRZ drawn and sent. zb EDMS 12/23 00:38 12/22 17:00 Discharge instructions given to patient, Instructed on discharge zb instructions, follow up and referral plans. Demonstrated understanding of instructions, follow-up care, medications, Prescriptions given X 2, zb
--- NOTE | 2020-12-22 16:04 | EDPHYS ---
[facility] Name: José Miguel Varma Age: 35 yrs Sex: Male : 1985 Arrival Date: 12/22/2020 Time: 11:23 Bed 16 Private MD: ED Physician Jamel Plata HPI: 12/22 14:30 This 35 yrs old Male presents to ER via Ambulatory with complaints of Cough, cp Toe Pain. 14:30 The patient or guardian reports cough, with productive sputum, that is white. Onset: cp The symptoms/episode began/occurred 2 day(s) ago. 14:30 Associated signs and symptoms: Pertinent positives: sore throat, Pertinent negatives: cp diarrhea, vomiting. Patient also c/o left great toe pain and swelling. Denies injury to left great toe. Historical: - Allergies: 11:54 No Known Allergies; sv - Immunization history:: Adult Immunizations up to date, Client reports having NOT received the Covid vaccine. Flu vaccine is not up to date. - Social history:: Smoking status: Patient denies any tobacco usage or history of. ROS: 14:35 Eyes: Negative for injury, pain, redness, and discharge. cp 14:35 Constitutional: Negative for body aches, chills, fever, poor PO intake. 14:35 ENT: Positive for rhinorrhea, sore throat, Negative for drainage from ear(s), ear pain, difficulty swallowing, difficulty handling secretions. 14:35 Cardiovascular: Negative for chest pain. 14:35 Respiratory: Positive for cough, "sounds productive", Negative for shortness of breath, wheezing. 14:35 Abdomen/GI: Negative for abdominal pain, nausea, vomiting, and diarrhea. 14:35 MS/extremity: Positive for pain, swelling, tenderness, of the left great toe, Negative for injury or acute deformity. 14:35 Neuro: Negative for altered mental status, headache, weakness. 14:35 All other systems are negative. Exam: 14:40 Constitutional: The patient appears in no acute distress, alert, awake, non-toxic, well cp developed, well nourished. 14:40 Head/Face: Normocephalic, atraumatic. cp 14:40 Eyes: Periorbital structures: appear normal, Conjunctiva: normal, no exudate, no injection, Lids and lashes: appear normal, bilaterally. 14:40 ENT: External ear(s): are unremarkable, Nose: is normal, Mouth: Lips: moist, Oral mucosa: moist, Posterior pharynx: Airway: no evidence of obstruction, patent, Tonsils: no enlargement, no exudate, erythema, that is mild, exudate, is not appreciated. 14:40 Neck: ROM/movement: is normal, is supple, without pain, no range of motions limitations, no meningismus, Lymph nodes: no appreciated lymphadenopathy. 14:40 Chest/axilla: Inspection: normal, Palpation: is normal, no crepitus, no tenderness. 14:40 Cardiovascular: Rate: normal, Rhythm: regular. 14:40 Respiratory: the patient does not display signs of respiratory distress, Respirations: labored breathing, is not present, intercostal retractions, are absent, Breath sounds: bronchial sounds, that are mild, are heard diffusely, stridor, is not appreciated, + upper airway congestion. wheezing: is not appreciated. 14:40 Abdomen/GI: Exam negative for discomfort, distension, guarding, Inspection: abdomen appears normal. 14:40 Musculoskeletal/extremity: Extremities: grossly normal except: noted in the left great toe: erythema, pain, swelling, tenderness, along lateral and medial nail margins. 14:40 Skin: no rash present. Vital Signs: 11:56 BP 132 / 95; Pulse 99; Resp 20; Temp 99.2(O); Pulse Ox 98% on R/A; Weight 113.4 kg; sv Height 5 ft. 10 in. (177.80 cm); 15:33 BP 133 / 83; Pulse 74; Resp 16; Pulse Ox 98% on R/A; zb 16:30 BP 132 / 84; Pulse 80; Resp 16; Pulse Ox 100% on R/A; zb 11:56 Body Mass Index 35.87 (113.40 kg, 177.80 cm) sv Procedures: 16:05 Performed Removal Ingrown Nail. Digital block performed using mixture 6 ccs of 1% cp lidocaine w/o epi and 0.5% marcaine. Left great toe cleaned with Betadine. Hemostats used to remove lateral and medial margins of nail. Wound cleaned and dressed. MDM: 14:18 Patient medically screened. cp 15:00 Differential Diagnosis: Bronchitis Influenza Upper Respiratory Infection Pneumonia. cp 16:02 Data reviewed: vital signs, nurses notes, lab test result(s), radiologic studies, plain cp films, and as a result, I will discharge patient. 16:02 Test interpretation: by ED physician or midlevel provider: plain radiologic studies. cp Counseling: I had a detailed discussion with the patient and/or guardian regarding: the historical points, exam findings, and any diagnostic results supporting the discharge/admit diagnosis, lab results, radiology results, to return to the emergency department if symptoms worsen or persist or if there are any questions or concerns that arise at home. Response to treatment: the patient's symptoms have markedly improved after treatment. 12/22 14:24 Order name: Strep; Complete Time: 16:07 cp 12/22 14:24 Order name: XRAY Chest (1 view); Complete Time: 16:07 12/22 16:07 Interpretation: Report reviewed. 12/22 15:09 Order name: Throat Culture [facility] 12/22 15:34 Order name: COVID-19/FLU A+B; Complete Time: 16:07 [facility] 12/22 14:24 Order name: Dressing - Wound; Complete Time: 14:43 cp 12/22 14:24 Order name: Gloves, Sterile; Complete Time: 14:43 cp 12/22 14:24 Order name: Setup Suture Tray; Complete Time: 14:43 cp Administered Medications: 14:43 Drug: Tessalon Perle (benzonatate) 200 mg Route: PO; zb 15:15 Follow up: Response: No adverse reaction; Marked relief of symptoms zb 15:15 Drug: Lidocaine (1 %) 10 ml {Note: Administered by ECP .} Volume: 20 ml; Route: zb Infiltration; 15:15 Drug: Marcaine (bupivacaine) (0.5 %) 10 ml {Note: adminstered by ECP .} Volume: 10 ml; zb Route: Infiltration; Disposition: 12/23 08:13 Co-signature as Attending Physician, Jamel Plata MD I agree with the assessment and kdr plan of care. Disposition: 12/22/20 16:04 Discharged to Home. Impression: Ingrowing nail - left great toe, Acute bronchitis. - Condition is Stable. - Discharge Instructions: Acute Bronchitis, Adult, Ingrown Toenail. - Prescriptions for Tessalon Perles 100 mg Oral Capsule - take 2 capsule by ORAL route every 8 hours As needed; 30 capsule. Albuterol Sulfate 90 mcg/actuation - inhale 1-2 puff by INHALATION route every 4-6 hours; 1 Inhaler. Amoxicillin 875 mg Oral Tablet - take 1 tablet by ORAL route every 12 hours for 10 days; 20 tablet. - Medication Reconciliation Form, Thank You Letter, Antibiotic Education, Prescription Opioid Use form. - Follow up: Private Physician; When: 2 - 3 days; Reason: Worsening of condition. - Problem is new. - Symptoms have improved. Signatures: Dispatcher [employer] EDAK Lana Alaniz RN RN sv Jamel Plata MD MD kdr Florentin Bush PA PA Chloe Vazquez RN RN zb Corrections: (The following items were deleted from the chart) 12/22 14:55 14:24 Influenza Screen (A \\T\\ B)+BA.LAB.BRZ ordered. EDAK EDAK 14:55 14:24 CORONAVIRUS+MR.LAB.BRZ ordered. [facility] EDAK 17:02 16:04 12/22/2020 16:04 Discharged to Home. Impression: Ingrowing nail - left great toe; zb Acute bronchitis. Condition is Stable. Forms are Medication Reconciliation Form, Thank You Letter, Antibiotic Education, Prescription Opioid Use. Follow up: Private Physician; When: 2 - 3 days; Reason: Worsening of condition. Problem is new. Symptoms have improved. cp 23:54 14:25 Constitutional: Negative for body aches, chills, fever, poor PO intake, cp cp 23:54 14:25 Eyes: Negative for injury, pain, redness, and discharge, cp cp 23:54 14:25 ENT: Positive for rhinorrhea, sore throat, Negative for drainage from ear(s), ear cp pain, difficulty swallowing, difficulty handling secretions, cp 23:54 14:25 Cardiovascular: Negative for chest pain, cp cp 23:54 14:25 Respiratory: Positive for cough, "sounds productive", Negative for shortness of cp breath, wheezing, cp 23:54 14:25 Abdomen/GI: Negative for abdominal pain, nausea, vomiting, and diarrhea, cp cp 23:54 14:25 MS/extremity: Positive for pain, swelling, tenderness, of the left great toe, cp Negative for injury or acute deformity, cp 23:54 14:25 Neuro: Negative for altered mental status, headache, weakness, cp cp :54 14:25 All other systems are negative, cp cp
[2020-12-22 17:10] VITALS: TEMP 99.2; O2SAT 98
[2020-12-22 17:11] VITALS: BP 133/83
== END 2020-12-22 17:02 | disposition home or self-care (01) ==
LOC: ER 11:22
DX: J20.9 Acute bronchitis, unspecified (principal); L60.0 Ingrowing nail; Z20.822 Contact with and (suspected) exposure to COVID-19
CPT/HCPCS: 0240U; 71045; 87070; 87081; 99284

== ENCOUNTER 2021-06-07 15:12 | Emergency (ER) | payer SELFPAY ==
--- NOTE | 2021-06-07 16:49 | RAD REPORT ---
EXAM DESCRIPTION: Laryt Pa And Lat (2 Views)06/07/2021 4:29 pm CLINICAL HISTORY: Cough COMPARISON: December 2020 FINDINGS: Moderate bilateral pulmonary opacities. The heart is normal size IMPRESSION: Moderate bilateral pulmonary opacities likely pneumonia
[2021-06-07 18:29] LABS: SARS-COV-2 RT PCR POSITIVE (NEGATIVE)
--- NOTE | 2021-06-07 19:27 | ER ---
Nurse's Notes [facility] Name: José Miguel Varma Age: 35 yrs Sex: Male : 1985 Arrival Date: 06/07/2021 Time: 15:14 Bed Waiting Private MD: Diagnosis: Coronavirus infection, unspecified Presentation: 06/07 15:55 Risk Assessment: Do you want to hurt yourself or someone else? Patient reports no hb desire to harm self or others. 15:55 Chief complaint: Chest pain, pain with breathing, night sweats x 5 days. Coronavirus hb screen: Client presents with at least one sign or symptom that may indicate coronavirus-19. Standard/surgical mask placed on the client. Provider contacted for isolation considerations. Ebola Screen: No symptoms or risks identified at this time. Onset of symptoms was June 03, 2021. 15:55 Method Of Arrival: Ambulatory hb 15:55 Acuity: SHAINA 3 hb Historical: - Allergies: 15:58 No Known Allergies; hb - Immunization history:: Adult Immunizations up to date, Client reports having NOT received the Covid vaccine. - Social history:: Smoking status: Patient denies any tobacco usage or history of. Vital Signs: 15:55 BP 134 / 83; Pulse 94; Resp 20; Temp 97.4(TE); Pulse Ox 97% on R/A; Weight 108.86 kg; hb Height 5 ft. 10 in. (177.80 cm); Pain 8/10; 15:55 Body Mass Index 34.44 (108.86 kg, 177.80 cm) hb ED Course: 15:14 Patient arrived in ED. as 15:55 Arm band placed on. hb 15:58 Triage completed. hb 16:02 Morenita Nevarez FNP-C is PHCP. kb 16:02 Florentin Ontiveros MD is Attending Physician. kb 16:29 Chest Pa And Lat (2 Views) XRAY In Process Unspecified. EDMS Administered Medications: No medications were administered Outcome: 19:26 Discharge ordered by . kb 19:35 Patient left the ED. hb Signatures: Dispatcher [employer] EDMS Morenita Nevarez FNP-C FNP-Ckb Martinez, Amelia as Baxter, Heather RN RN hb
--- NOTE | 2021-06-07 19:27 | EDPHYS ---
Physician Documentation [facility] Name: José Miguel Varma Age: 35 yrs Sex: Male : 1985 Arrival Date: 06/07/2021 Time: 15:14 Bed Waiting Private MD: ED Physician Florentin Ontiveros HPI: 06/07 19:36 This 35 yrs old Male presents to ER via Ambulatory with complaints of kb Shortness Of Breath, Chest Pain. 19:36 The patient or guardian reports cough, that is intermittent, described as moderate, kb with no sputum, difficulty breathing, flu symptoms, myalgias. Onset: The symptoms/episode began/occurred 3 day(s) ago. Severity of symptoms: At their worst the symptoms were moderate, in the emergency department the symptoms are unchanged. Modifying factors: The symptoms are alleviated by nothing, the symptoms are aggravated by nothing. Associated signs and symptoms: Pertinent positives: chest pain, Pertinent negatives: diarrhea, ear ache, fever, nausea, rhinorrhea, sore throat, vomiting. The patient has not experienced similar symptoms in the past. The patient has not recently seen a physician. Historical: - Allergies: 15:58 No Known Allergies; hb - Immunization history:: Adult Immunizations up to date, Client reports having NOT received the Covid vaccine. - Social history:: Smoking status: Patient denies any tobacco usage or history of. ROS: 19:35 Abdomen/GI: Negative for abdominal pain, nausea, vomiting, diarrhea, and constipation. kb 19:35 Constitutional: Positive for body aches, fatigue, malaise. 19:35 Cardiovascular: Positive for chest pain, with cough. 19:35 Respiratory: Positive for cough, shortness of breath. 19:35 All other systems are negative. Exam: 19:35 Constitutional: This is a well developed, well nourished patient who is awake, alert, kb and in no acute distress. Head/Face: Normocephalic, atraumatic. ENT: Moist Mucous membranes Cardiovascular: Regular rate and rhythm with a normal S1 and S2. No gallops, murmurs, or rubs. No pulse deficits. Respiratory: Respirations even and unlabored. No increased work of breathing, no retractions or nasal flaring. Abdomen/GI: Soft, non-tender. No distention Skin: Warm, dry with normal turgor. Normal color. MS/ Extremity: Pulses equal, no cyanosis. Neurovascular intact. Full, normal range of motion. Neuro: Awake and alert, GCS 15, oriented to person, place, time, and situation. Moves all extremities. Normal gait. Psych: Awake, alert, with orientation to person, place and time. Behavior, mood, and affect are within normal limits. Vital Signs: 15:55 BP 134 / 83; Pulse 94; Resp 20; Temp 97.4(TE); Pulse Ox 97% on R/A; Weight 108.86 kg; hb Height 5 ft. 10 in. (177.80 cm); Pain 8/10; 15:55 Body Mass Index 34.44 (108.86 kg, 177.80 cm) hb MDM: 16:02 Patient medically screened. kb 19:35 Data reviewed: vital signs, nurses notes. Data interpreted: Pulse oximetry: on room air kb is 97 %. Interpretation: normal. Counseling: I had a detailed discussion with the patient and/or guardian regarding: the historical points, exam findings, and any diagnostic results supporting the discharge/admit diagnosis, lab results, radiology results, the need for outpatient follow up, a family practitioner, to return to the emergency department if symptoms worsen or persist or if there are any questions or concerns that arise at home. 08 15:59 Order name: Flu hb 06/07 15:59 Order name: Chest Pa And Lat (2 Views) XRAY; Complete Time: 16:55 hb 06/07 18:30 Order name: COVID-19/FLU A+B; Complete Time: 18:31 EDMS Administered Medications: No medications were administered Disposition: 06/08 07:52 Co-signature as Attending Physician, Florentin Ontiveros MD I agree with the assessment and roge plan of care. Disposition Summary: 06/07/21 19:26 Discharge Ordered Location: Home kb Condition: Stable kb Diagnosis - Coronavirus infection, unspecified kb Followup: kb - With: Emergency Department - When: As needed - Reason: Worsening of condition Followup: kb - With: Private Physician - When: 2 - 3 days - Reason: Recheck today's complaints, Continuance of care, Re-evaluation by your physician Discharge Instructions: - Discharge Summary Sheet kb - Viral Respiratory Infection, [id number] kb - COVID-19 kb Forms: - Medication Reconciliation Form kb - Thank You Letter kb - Antibiotic Education kb - Prescription Opioid Use kb Signatures: Dispatcher [employer] EDMS Morenita Nevarez, ADALBERTO-C ADALBERTO-Florentin Jerome MD MD cha Baxter, Heather, RN RN Corrections: (The following items were deleted from the chart) 06/07 17:13 15:59 CORONAVIRUS+BRZ ordered. EDMS EDMS
[2021-06-07 19:40] VITALS: BP 134/83; TEMP 97.4; O2SAT 97
== END 2021-06-07 19:35 | disposition home or self-care (01) ==
LOC: ER 15:12
DX: U07.1 COVID-19 (principal)
CPT/HCPCS: 0240U; 71046; 99282

== ENCOUNTER 2022-03-02 02:30 | Emergency (ER) | payer BC, SELFPAY ==
[2022-03-02] MEDS ORDERED: IBUPROFEN 400 MG TAB ONE (04:04)
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
[2022-03-02 04:33] VITALS: TEMP 98.3; O2SAT 99
[2022-03-02 04:37] VITALS: BP 96/70
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
== END 2022-03-02 04:27 | disposition home or self-care (01) ==
LOC: ER 02:30
DX: S97.81XA Crushing injury of right foot, initial encounter (principal); V09.9XXA Pedestrian injured in unspecified transport accident, initial encounter; F17.210 Nicotine dependence, cigarettes, uncomplicated
CPT/HCPCS: 99284

== ENCOUNTER 2022-03-02 14:58 | Emergency (ER) | payer SELFPAY ==
[2022-03-02] MEDS ORDERED: HYDROCODONE/APAP 10/325 TAB ONE (15:33)
[2022-03-02] MEDS ORDERED: KETOROLAC 30 MG/ML INJ ONE (15:33)
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
[2022-03-02] MEDS ORDERED: MORPHINE 4 MG/ML SYR ONE (16:31)
[2022-03-02 16:47] VITALS: BP 107/75; TEMP 98.1; O2SAT 99
== END 2022-03-02 16:41 | disposition home or self-care (01) ==
LOC: ER 14:58
PROC: 2W3QX1Z Immobilization of Right Lower Leg using Splint (ICD-10-PCS; principal; 2022-03-02)
DX: S82.301A Unspecified fracture of lower end of right tibia, initial encounter for closed fracture (principal); V09.9XXA Pedestrian injured in unspecified transport accident, initial encounter
CPT/HCPCS: 96372; 99283